=== PATIENT | female | born 2000 | race Caucasian/White ===

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

== ENCOUNTER 2020-06-10 23:58 | Inpatient (IN) | payer OTHER ==
[2020-06-11] MEDS ORDERED: SODIUM CHLORIDE 1,000 ML IV STA (01:01)
[2020-06-11] MEDS ORDERED: ACETAMINOPHEN 1000 MG/100 ML VIAL (NON FORMULARY) IVPB ONE (01:01)
[2020-06-11 01:08] LABS: EPI CELLS 10 /uL (0-25.1); HYALINE CASTS 0 /uL (0-3.1); PH,URINE 5.5 (5.0-8.0); URINE APPEARANCE CLOUDY; URINE BACTERIA 529 /uL (0-1359); URINE BILIRUBIN NEGATIVE (NEGATIVE); URINE COLOR YELLOW; URINE GLUCOSE (UA) NEGATIVE (NEGATIVE); URINE KETONE NEGATIVE (NEGATIVE); URINE LEUK ESTERASE NEGATIVE (NEGATIVE); URINE NITRITE NEGATIVE (NEGATIVE); URINE PROTEIN 1+ (NEGATIVE); URINE RBC 2920 /uL (0-23.9); URINE UROBILINOGEN 0.2 mg/dL (0.2-1.0); URINE WBC 19 /uL (0-25.8)
[2020-06-11] MEDS ORDERED: ACETAMINOPHEN INJECTION 100 ML IVPB ONE (01:08)
[2020-06-11 01:11] LABS: HCG,QUALITATIVE URINE Negative
[2020-06-11 01:31] LABS: BASO % 0.6 % (0-2.0); EOS % 0.8 % (0-4.5); HEMATOCRIT 43.3 % (32.4-45.2); HEMOGLOBIN 14.3 GM/dL (10.7-15.3); LYMPH % 20.4 % (8-40); MCH 28.4 pg (25.7-33.7); MEAN PLT VOLUME 8.7 fl (7.5-11.1); MONO % 4.2 % (3.8-10.2); PLATELET COUNT 359 K/MM3 (134-434); RBC 5.03 M/mm3 (3.60-5.2); RDW 12.2 % (11.6-15.6); WHITE BLOOD COUNT 10.7 K/mm3 (4.0-10.0)
[2020-06-11 01:49] LABS: POTASSIUM 4.3 mmol/L (3.5-5.1)
[2020-06-11] MEDS ORDERED: KETOROLAC TROMETHAMINE 30 MG/1 ML VIAL IVPUSH ONE (01:49)
[2020-06-11 01:50] LABS: ALBUMIN 4.3 g/dl (3.4-5.0); BLOOD UREA NITROGEN 7.4 mg/dL (7-18); CALCIUM 10.1 mg/dL (8.5-10.1)
[2020-06-11 01:53] LABS: CREATININE 0.8 mg/dL (0.55-1.3)
[2020-06-11 01:55] LABS: BILIRUBIN,TOTAL 0.4 mg/dL (0.2-1); TOT PROT 8.4 g/dl (6.4-8.2)
[2020-06-11] MEDS ORDERED: KETOROLAC TROMETHAMINE 30 MG/1 ML VIAL ONE (01:55)
[2020-06-11] MEDS ORDERED: CEFTRIAXONE 1 GM in DEXTROSE 5%-WATER - 100 ML IVPB ONE (05:03)
[2020-06-11] MEDS ORDERED: CEFTRIAXONE 1 GM/50 ML BAG ONE (05:11)
[2020-06-11] MEDS ORDERED: TAMSULOSIN HCL 0.4 MG CAP PO ONE (06:14)
[2020-06-11] MEDS ORDERED: ACETAMINOPHEN 1000 MG/100 ML VIAL (NON FORMULARY) IVPB PRN (06:15)
[2020-06-11] MEDS ORDERED: KETOROLAC TROMETHAMINE 15 MG/ML VIAL IVPUSH PRN (06:20)
[2020-06-11] MEDS: SODIUM CHLORIDE 1,000 ML IV SCH ×2 (06:21→22:48)
[2020-06-11] MEDS ORDERED: CEFTRIAXONE 1,000 MG in DEXTROSE 5%-WATER - 50 ML IVPB SCH (10:00)
[2020-06-11 10:05] LABS: HEMATOCRIT 37.1 % (32.4-45.2); MCHC 32.3 g/dl (32.0-36.0); MEAN CELL VOLUME 86.5 fl (80-96); MEAN PLT VOLUME 8.4 fl (7.5-11.1); PLATELET COUNT 283 K/MM3 (134-434); RBC 4.29 M/mm3 (3.60-5.2); RDW 12.1 % (11.6-15.6); WHITE BLOOD COUNT 8.2 K/mm3 (4.0-10.0)
[2020-06-11 10:30] LABS: POTASSIUM 3.7 mmol/L (3.5-5.1)
[2020-06-11 10:33] LABS: BLOOD UREA NITROGEN 7.5 mg/dL (7-18); CALCIUM 9.1 mg/dL (8.5-10.1)
[2020-06-11 10:37] LABS: CREATININE 0.7 mg/dL (0.55-1.3); PHOSPHOROUS 3.7 mg/dL (2.5-4.9)
[2020-06-12] MEDS: SODIUM CHLORIDE 1,000 ML IV SCH (06:00)
[2020-06-12] MEDS ORDERED: CEFTRIAXONE 1,000 MG in DEXTROSE 5%-WATER - 50 ML IVPB SCH (10:00)
[2020-06-12] MEDS ORDERED: CEFTRIAXONE 1 G/50 ML PREMIX 50 ML IVPB SCH (10:00)
[2020-06-12] MEDS ORDERED: cefTRIAXone SODIUM 1 GM VIAL ONE (11:03)
[2020-06-12] MEDS ORDERED: DEXTROSE 5%-WATER - 50 ML IVPB ONE (11:03)
[2020-06-13 08:27] LABS: BASO % 0.5 % (0-2.0); EOS % 3.8 % (0-4.5); HEMATOCRIT 34.8 % (32.4-45.2); HEMOGLOBIN 11.4 GM/dL (10.7-15.3); LYMPH % 43.4 % (8-40); MCH 28.3 pg (25.7-33.7); MCHC 32.8 g/dl (32.0-36.0); MEAN CELL VOLUME 86.3 fl (80-96); MEAN PLT VOLUME 8.7 fl (7.5-11.1); MONO % 6.9 % (3.8-10.2); NEUT % 45.4 % (42.8-82.8); PLATELET COUNT 247 K/MM3 (134-434); RBC 4.03 M/mm3 (3.60-5.2); RDW 11.8 % (11.6-15.6); WHITE BLOOD COUNT 5.7 K/mm3 (4.0-10.0)
[2020-06-13 08:44] LABS: POTASSIUM 4.2 mmol/L (3.5-5.1)
[2020-06-13 08:55] LABS: BLOOD UREA NITROGEN 4.2 mg/dL (7-18); CALCIUM 8.6 mg/dL (8.5-10.1)
[2020-06-13] MEDS ORDERED: DEXTROSE 5%-WATER - 50 ML IVPB ONE (08:57)
[2020-06-13] MEDS ORDERED: cefTRIAXone SODIUM 1 GM VIAL ONE (08:57)
[2020-06-13 08:58] LABS: CREATININE 0.6 mg/dL (0.55-1.3)
[2020-06-13] MEDS: CEFTRIAXONE 1 GM in DEXTROSE 5%-WATER - 50 ML IVPB SCH (10:14)
[2020-06-13] MEDS: SODIUM CHLORIDE 1,000 ML IV SCH (10:14)
[2020-06-13 16:08] VITALS: BMI 23.0
[2020-06-14] MEDS ORDERED: MIDAZOLAM HCL 2 MG/2 ML SINGLE DOSE VIAL ONE (07:58)
[2020-06-14] MEDS ORDERED: ONDANSETRON 4 MG/2 ML VIAL IVPUSH PRN ×2 (08:24→12:00)
[2020-06-14] MEDS ORDERED: oxyCODONE HCL 5 MG TABLET PO PRN ×2 (08:24→12:00)
[2020-06-14] MEDS ORDERED: LACTATED RINGERS SOLUTION 1,000 ML IV SCH ×2 (08:30→12:00)
[2020-06-14] MEDS ORDERED: GENTAMICIN SO4 80 MG/2 ML VIAL ONE (08:33)
[2020-06-14] MEDS ORDERED: GENTAMICIN 80MG PREMIX BAG IVPB ONE (08:35)
[2020-06-14] MEDS ORDERED: PROPOFOL 20 ML ONE ×3 (08:39→08:54)
[2020-06-14] MEDS ORDERED: DEXAMETHASONE SOD PHOSPHATE 4 MG/1 ML VIAL ONE (08:54)
[2020-06-14] MEDS ORDERED: LIDOCAINE HCL/PF 2% SDV 5ML VIAL ONE (08:54)
[2020-06-14] MEDS ORDERED: KETOROLAC TROMETHAMINE 15 MG/ML VIAL IVPUSH PRN (12:00)
[2020-06-14] MEDS ORDERED: SODIUM CHLORIDE 1,000 ML IV SCH (12:00)
[2020-06-14] MEDS: SODIUM CHLORIDE 1,000 ML IV SCH (12:53)
[2020-06-14] MEDS: CEFTRIAXONE 1 GM in DEXTROSE 5%-WATER - 50 ML IVPB SCH (12:54)
[2020-06-14 13:49] LABS: BASO % 0.3 % (0-2.0); EOS % 0.2 % (0-4.5); HEMATOCRIT 39.4 % (32.4-45.2); HEMOGLOBIN 13.1 GM/dL (10.7-15.3); LYMPH % 8.1 % (8-40); MCH 28.7 pg (25.7-33.7); MCHC 33.2 g/dl (32.0-36.0); MEAN CELL VOLUME 86.3 fl (80-96); NEUT % 90.4 % (42.8-82.8); PLATELET COUNT 282 K/MM3 (134-434); RBC 4.56 M/mm3 (3.60-5.2); RDW 12.1 % (11.6-15.6); WHITE BLOOD COUNT 9.2 K/mm3 (4.0-10.0)
[2020-06-14 13:58] LABS: INR 1.17 (0.83-1.09); PROTHROMBIN TIME (PATIENT) 14.1 SEC (9.7-13.0)
[2020-06-14 14:01] LABS: ACTIVATED PTT 31.3 SECONDS (25.2-36.5)
[2020-06-14 14:14] LABS: POTASSIUM 4.1 mmol/L (3.5-5.1)
[2020-06-14 14:17] LABS: BLOOD UREA NITROGEN 4.9 mg/dL (7-18); CALCIUM 9.7 mg/dL (8.5-10.1)
[2020-06-14 14:21] LABS: CREATININE 0.7 mg/dL (0.55-1.3)
[2020-06-14 14:26] VITALS: BP 125/64; PULSE 77; TEMP 98.3
[2020-06-14 15:54] LABS: POTASSIUM 3.9 mmol/L (3.5-5.1)
[2020-06-14 15:55] LABS: CALCIUM 9.8 mg/dL (8.5-10.1)
[2020-06-14 15:56] LABS: BLOOD UREA NITROGEN 5.1 mg/dL (7-18)
[2020-06-14 15:59] LABS: CREATININE 0.7 mg/dL (0.55-1.3)
== END 2020-06-14 17:26 | disposition home or self-care (01) | DRG 463 ==
LOC: JER 23:58 → JERBED 06-11 05:06 → J5S 06-11 21:39 → J8W 06-13 10:26
PROVIDERS: ADMIT Hospitalist; ATTEND Internal Medicine
PROC: BT1FZZZ Fluoroscopy of Left Kidney, Ureter and Bladder (ICD-10-PCS; 2020-06-14)
PROC: 0T778DZ Dilation of Left Ureter with Intraluminal Device, Via Natural or Artificial Opening Endoscopic (ICD-10-PCS; principal; 2020-06-14 14:00)
DX: N13.6 Pyonephrosis (principal); B96.20 Unspecified Escherichia coli [E. coli] as the cause of diseases classified elsewhere
CPT/HCPCS: 36415; 71045-TC-FY; 74176-TC; 76000-TC-FY; 80048; 80053; 81003; 83690; 83735; 84100; 84703; 85025; 85027; 85610; 85730; 86850; 86900; 86901; 87086; 87186; 93005; 93010; 94760; 99285-25; C9803; J0131; U0003

== ENCOUNTER 2020-08-09 04:28 | Day surgery (SDC) | payer OTHER ==
[2020-07-07 15:13] VITALS: BMI 22.8
[2020-08-09] MEDS ORDERED: PROPOFOL 20 ML ONE (12:31)
[2020-08-09] MEDS ORDERED: MIDAZOLAM HCL 2 MG/2 ML SINGLE DOSE VIAL ONE ×3 (12:41→13:40)
[2020-08-09 14:54] VITALS: BP 117/69; PULSE 68; TEMP 97.7
== END 2020-08-09 15:12 | disposition home or self-care (01) ==
LOC: JASU-SURG 04:28
PROVIDERS: ATTEND Urology
PROC: 0TF3XZZ Fragmentation in Right Kidney Pelvis, External Approach (ICD-10-PCS; principal; 2020-08-09 11:30)
DX: N20.0 Calculus of kidney (principal)
CPT/HCPCS: 84703